=== PATIENT | female | born 1990 | race Caucasian/White ===

== ENCOUNTER 2016-07-27 04:38 | Emergency (ER) | payer MEDICAID ==
--- NOTE | 2016-07-27 05:03 | ED Physician Chart ---
Chief Complaint/HPI - Patient Information Date Seen:: 07/27/16 Time Seen:: 04:45 Chief Complaint:: chest pain History of Present Illness:: Patient has had substernal pleuritic chest pain radiating to her left shoulder and left side of her neck for the last 2 days. Pain is sometimes sharp but more frequently pressure-like. Patient's had no recent upper respiratory tract infection or cough. She has had frequent eructation. She also about once a week has an irregular heartbeat; sometimes several in a row. Patient had a normal vaginal delivery July 01 after which she had a D&C for hemorrhage. Historian:: Patient Review:: Nurse's Note Reviewed Review of Systems - Review of Systems General/Constitutional: No fever, No chills Skin: No skin lesions Head: No headache Eyes: No loss of vision ENT: No earache Neck: No neck pain Cardio Vascular: Chest pain, Palpitations Pulmonary: No SOB GI: No nausea, No vomiting, Other (frequent eructation) G/U: No dysuria, No frequency, No hematuria Musculoskeletal: No bone or joint pain, No back pain Endocrine: No polyuria, No polydipsia Psychiatric: Anxiety, Other (panic attacks) Hematopoietic: No bruising Allergic/Immuno: No urticaria Neurological: No syncope Past Medical History - Past Medical History Past Medical History: No significant medical hx Family History: Heart disease Social History: Non Smoker, No Alcohol Surgical History: Appendectomy, other (D&C following her recent normal vaginal delivery) Psychiatricy History: Other (anxiety and panic attacks) Physical Exam - Physical Examination General/Constitutional: Well-developed, well-nourished, Alert, No distress Head: Atraumatic Eyes: Lids, conjuctiva normal, PERRL Skin: Nl inspection, No rash ENMT: External ears, nose nl, TM canals nl, Nasal exam nl, Lips, teeth, gums nl , Oropharynx nl, Tonsils nl Neck: No nuchal rigidity Respiratory: Nl effort/Exclusion, Clear to Auscultation, No Wheeze/Rhonchi/Rales Cardio Vascular: RRR, No murmur, gallop, rubs GI: No tenderness/rebounding/guarding, No organomegaly, No hernia, Normal BS's, Nondistended, No mass/bruits, No McBurney tenderness : No CVA tenderness Extremities: Normal digits & nails Neuro/Psych: No focal deficits Misc: Normal back Labs/Radiology/EKG Results - EKG Interpretations Rate & Rhythm: normal sinus rhythm with a rate of 66 [place]: normal Comments:: Normal EKG ED Septic Shock - . Is Septic Shock (SBP<90, OR Lactate>4 mmol\L) present?: No Reassessment (Disposition) - Reassessment Reassessment Condition:: Unchanged - Diagnosis Diagnosis:: Atypical chest pain - Aftercare/Follow up Instructions Aftercare/Follow-Up Instructions:: Refer to Discharge Instructions - Patient Disposition Discharge/Transfer:: Home Condition at Disposition:: Stable, Unchanged
== END 2016-07-27 05:01 | disposition home or self-care (01) ==
LOC: ER 04:38
DX: R07.89 Other chest pain (principal)
CPT/HCPCS: 93005; Z7502